=== PATIENT | female | born 1955 | race Hispanic/Latino ===

== ENCOUNTER → 2022-11-29 | Outpatient (CLI) | payer MEDICARE ==
[~2022-11-29] MED LIST: IOHEXOL 350 MG/ML 100ML INFUS..BTL IV ONE
== END | disposition home or self-care (01) ==
LOC: RAH 07:52
PROVIDERS: ATTEND Internal Medicine Cardiovascular Disease
DX: I20.9 Angina pectoris, unspecified (principal)
CPT/HCPCS: 75574; Q9967

== ENCOUNTER 2023-01-31 15:38 | Emergency (ER) | payer MEDICARE ==
[~2023-01-31] VITALS: Ht 157.5 cm; Wt 68.9 kg
[2023-01-31 16:14] LABS: APPEARANCE,URINE CLOUDY (CLEAR); BILIRUBIN,URINE NEGATIVE (NEGATIVE); COLOR,URINE YELLOW (YELLOW); GLUCOSE, URINE (UA) NEGATIVE (NEGATIVE); KETONES,URINE NEGATIVE (NEGATIVE); LEUKOCYTE ESTERASE ,URINE NEGATIVE Leu/uL (NEGATIVE); NITRATE,URINE NEGATIVE (NEGATIVE); OCCULT BLOOD,URINE SMALL (NEGATIVE); PH,URINE 5.5 (5.0-8.0); PROTEIN,URINE 50 mg/dL (NEGATIVE)
[2023-01-31 16:22] LABS: BACTERIA,URINE FEW /HPF (None Seen); MUCUS,URINE RARE LPF (None Seen); SQUAMOUS EPITHELIAL CELL,UR MOD /HPF (0-2)
[2023-01-31 16:38] LABS: BASOPHILS % (AUTO) 0.4 % (0.0-5.0); HEMATOCRIT 38.9 % (36-48); MEAN CORPUSCULAR HEMOGLOBIN 34.9 pg (27.0-33.0); MEAN CORPUSCULAR HGB CONC 33.2 g/dL (32.0-36.0); MEAN CORPUSCULAR VOLUME 105.1 fL (79-99); MONOCYTES % (AUTO) 9.7 % (3.0-13.0); NEUTROPHILS % (AUTO) 64.5 % (40.0-77.0); PLATELET COUNT (AUTO) 213 K/uL (130-400); RED CELL DISTRIBUTION WIDTH 12.5 % (11.0-15.5); WHITE BLOOD COUNT (AUTO) 7.2 K/uL (4.8-10.8)
[2023-01-31 16:58] LABS: POTASSIUM 4.2 mmol/L (3.5-5.1)
[2023-01-31] MEDS ORDERED: 0.9%NACL 1000ML 1,000 ML IV ONE (17:00)
[2023-01-31 17:13] LABS: ALBUMIN 3.4 g/dL (3.5-5.0); TOTAL PROTEIN, SERUM 7.9 g/dL (6.0-8.3)
[2023-01-31] MEDS ORDERED: LOPE2CAP PO (17:39)
[2023-01-31] MEDS ORDERED: ONDA4TAB10 PO (17:39)
[2023-01-31 18:27] VITALS: BP 115/62
== END 2023-01-31 19:05 | disposition home or self-care (01) ==
LOC: EDH 15:38
DX: K52.9 Noninfective gastroenteritis and colitis, unspecified (principal); I10 Essential (primary) hypertension; E78.00 Pure hypercholesterolemia, unspecified; Z88.0 Allergy status to penicillin; Z88.2 Allergy status to sulfonamides; Z88.8 Allergy status to other drugs, medicaments and biological substances; Z90.49 Acquired absence of other specified parts of digestive tract; Z90.710 Acquired absence of both cervix and uterus
CPT/HCPCS: 99285; 96360; 71045; 84484; 80053; 83690; 85025; 81001; 36415; 93005; J7030

== ENCOUNTER 2023-08-29 14:52 | Emergency (ER) | payer MEDICARE ==
[~2023-08-29] VITALS: Ht 157.5 cm; Wt 68.0 kg
[~2023-08-29 14:52] MED LIST changes: -IOHEXOL 350 MG/ML 100ML INFUS..BTL IV ONE; +LOPE2CAP PO; +ONDA4TAB10 PO
[2023-08-29 16:03] LABS: SARS-CoV-2, RNA, NAAT POSITIVE SARS CoV-2 (NEGATIVE)
[2023-08-29 16:05] LABS: INFLUENZA TYPE A Negative For Type A (NEGATIVE); INFLUENZA TYPE B Negative For Type B (NEGATIVE)
[2023-08-29] MEDS ORDERED: BENZ-39 PO (18:31)
[2023-08-29] MEDS ORDERED: METH4TAB3 PO (18:31)
[2023-08-29 19:37] VITALS: BP 129/82; PULSE 72; RESP 18; O2SAT 98
== END 2023-08-29 19:40 | disposition home or self-care (01) ==
LOC: EDH 14:52
DX: U07.1 COVID-19 (principal); I82.402 Acute embolism and thrombosis of unspecified deep veins of left lower extremity; R05.9 Cough, unspecified; M79.605 Pain in left leg; I25.10 Atherosclerotic heart disease of native coronary artery without angina pectoris; J44.9 Chronic obstructive pulmonary disease, unspecified; E78.00 Pure hypercholesterolemia, unspecified; I10 Essential (primary) hypertension; Z88.0 Allergy status to penicillin; Z88.1 Allergy status to other antibiotic agents; Z88.2 Allergy status to sulfonamides; Z90.49 Acquired absence of other specified parts of digestive tract; Z90.710 Acquired absence of both cervix and uterus
CPT/HCPCS: 71045; 87635; 87804; 93971

== ENCOUNTER 2024-03-14 14:19 | Emergency (ER) | payer MEDICARE ==
[~2024-03-14] VITALS: Ht 157.5 cm; Wt 68.0 kg
[~2024-03-14 14:19] MED LIST changes: +BENZ-39 PO; +METH4TAB3 PO; +ONDA-243 PO; -ONDA4TAB10 PO
[2024-03-14 15:06] LABS: BASOPHILS # (AUTO) 0.04 K/uL (0.00-0.20); BASOPHILS % (AUTO) 0.5 % (0.0-5.0); EOSINOPHILS % (AUTO) 1.2 % (0.0-8.0); IMMATURE GRANULOCYTE ABSOLUTE 0.04 K/uL (0-1); LYMPHOCYTES # (AUTO) 1.7 K/uL (1.0-4.8); LYMPHOCYTES % (AUTO) 20.3 % (21.0-51.0); MEAN CORPUSCULAR HEMOGLOBIN 34.6 pg (27.0-33.0); MEAN CORPUSCULAR HGB CONC 33.2 g/dL (32.0-36.0); MEAN CORPUSCULAR VOLUME 103.9 fL (79-99); MONOCYTES # (AUTO) 0.5 K/uL (0.1-1.0); MONOCYTES % (AUTO) 5.8 % (3.0-13.0); NEUTROPHILS % (AUTO) 71.7 % (40.0-77.0); PLATELET COUNT (AUTO) 251 K/uL (130-400); RED BLOOD CELL COUNT(AUTO) 3.56 MIL/uL (4.00-5.50); RED CELL DISTRIBUTION WIDTH 12.6 % (11.0-15.5); WHITE BLOOD COUNT (AUTO) 8.3 K/uL (4.8-10.8)
[2024-03-14 15:09] LABS: APPEARANCE,URINE CLEAR (CLEAR); BILIRUBIN,URINE NEGATIVE (NEGATIVE); COLOR,URINE YELLOW (YELLOW); GLUCOSE, URINE (UA) NEGATIVE (NEGATIVE); KETONES,URINE NEGATIVE (NEGATIVE); LEUKOCYTE ESTERASE ,URINE 500 Leu/uL (NEGATIVE); NITRATE,URINE NEGATIVE (NEGATIVE); PH,URINE 7.5 (5.0-8.0); PROTEIN,URINE NEGATIVE (NEGATIVE); UROBILINOGEN,URINE 0.2 mg/dL (0.2-1.0)
[2024-03-14 15:10] LABS: ADD UA MICROSCOPIC YES
[2024-03-14 15:11] LABS: POTASSIUM 4.3 mmol/L (3.5-5.1)
[2024-03-14 15:12] LABS: BACTERIA,URINE RARE /HPF (None Seen); SQUAMOUS EPITHELIAL CELL,UR FEW /HPF (0-2); WBC,URINE 26-50 /HPF (0-1); YEAST,URINE BUDDING RARE /HPF (None Seen)
[2024-03-14] MEDS: cefTRIAXone 1G VIAL IVPB ONE (17:20)
[2024-03-14 17:29] VITALS: BP 107/56; PULSE 55; RESP 18; O2SAT 96
[2024-03-14] MEDS ORDERED: MACR100 PO (17:33)
== END 2024-03-14 17:57 | disposition home or self-care (01) ==
LOC: EDH 14:19
DX: N30.00 Acute cystitis without hematuria (principal); R33.9 Retention of urine, unspecified; I25.10 Atherosclerotic heart disease of native coronary artery without angina pectoris; E78.00 Pure hypercholesterolemia, unspecified; I10 Essential (primary) hypertension; Z86.73 Personal history of transient ischemic attack (TIA), and cerebral infarction without residual deficits; Z88.0 Allergy status to penicillin; Z88.1 Allergy status to other antibiotic agents; Z88.2 Allergy status to sulfonamides; Z90.49 Acquired absence of other specified parts of digestive tract; Z90.710 Acquired absence of both cervix and uterus
CPT/HCPCS: 99285; 96365; 76770; 80048; 83690; 85025; 87086 ×2; 87186; 81001; 36415; J0696

== ENCOUNTER 2024-10-26 19:34 | Emergency (ER) | payer MEDICARE ==
[~2024-10-26] VITALS: Ht 157.5 cm; Wt 72.1 kg
[~2024-10-26 19:34] MED LIST changes: +MACR100 PO
--- NOTE | 2024-10-26 19:42 | ERN ---
ED Note History of Present Illness Stated Complaint: RIGHT SIDED RIB PAIN Chief Complaint: Rib Pain Time Seen by MD: 19:36 Dictation: PATIENT IS A 69-YEAR-OLD FEMALE HERE WITH COMPLAINTS OF RIGHT LATERAL CHEST WALL PAIN TENDERNESS ONSET YESTERDAY STATUS POST A SLIP FALL. NO HEAD INJURY NO NECK PAIN NO MIDLINE SPINE PAIN. SHE IS AMBULATORY. SHE HAS NOT TAKEN ANYTHING PRIOR FOR PAIN. Allergies: Coded Allergies: Penicillins (Unverified Allergy, Unknown, 01/31/23) Sulfa (Sulfonamide Antibiotics) (Unverified Allergy, Unknown, 01/31/23) levofloxacin (Unverified Allergy, Unknown, 01/31/23) Home Meds Active Scripts Nitrofurantoin/Nitrofuran Mac (Macrobid) 100 Mg Cap, 100 MG PO BID for 7 Days, #14 CAP Prov:JUAN SHERIDAN MD 03/14/24 Methylprednisolone (Medrol) 4 Mg Tab.ds.pk, 4 MG PO AD, #1 UNIT Prov:MINDA FERRARI AUTO TECHNICIAN 08/29/23 Benzonatate (Tessalon Perles) 100 Mg Cap, 100 MG PO TID for cough, #30 CAP 0 Refills Prov:MINDA FERRARI AUTO TECHNICIAN 08/29/23 Loperamide HCl (Imodium 2 mg Cap) 2 Mg Capsule, 2 MG PO TIDP PRN for DIARRHEA, #7 CAP Prov:WESTON MARIA MD 01/31/23 Ondansetron (Ondansetron Odt) 4 Mg Tab.rapdis, 4 MG PO Q12H for 7 Days, #14 TAB Prov:WESTON MARIA MD 01/31/23 Past Medical History Past Medical History: CAD, CVA, High Cholesterol, Hypertension Additional Past Medical Hx: PE Surgical History: Hysterectomy, Cholecystectomy, Other Surgical History Other: HERNIA Family History: Negative Social History: Negative, Lives with family History: Not Applicable RN Note Reviewed/Agreed w/PFSH: Yes Review of System Dictation CONSTITUTIONAL: NEGATIVE EXCEPT FOR HPI HEAD/FACE: NEGATIVE EXCEPT FOR HPI EENT: NEGATIVE EXCEPT FOR HPI RESPIRATORY: NEGATIVE EXCEPT FOR HPI RIGHT LATERAL CHEST WALL PAIN TENDERNESS GASTROINTESTINAL/ABDOMINAL: NEGATIVE EXCEPT FOR HPI GENITOURINARY: NEGATIVE EXCEPT FOR HPI MUSCULOSKELETAL: NEGATIVE EXCEPT FOR HPI INTEGUMENTARY: NEGATIVE EXCEPT FOR HPI NEUROLOGICAL/PSYCH: NEGATIVE EXCEPT FOR HPI HEMATOLOGIC/LYMPHATIC: NEGATIVE EXCEPT FOR HPI ALL SYSTEMS NEGATIVE, EXCEPT NOTED ABOVE. 13 POINT REVIEW OF SYSTEMS ASSESSED AND ALL NEGATIVE EXCEPT FOR ABOVE. Initial Vital Sign VS Vital Signs Date Time Temp Pulse Resp B/P (MAP) Pulse Ox O2 Delivery O2 Flow Rate FiO2 10/26/24 19:35 97.0 72 18 114/67 97 Room Air 10/26/24 20:59 0 21 Physical Exam Dictation VITAL SIGNS REVIEWE MODERATE ACUTE DISTRESS, WELL DEVELOPED, NOURISHED. HEAD AND FACE: NON-TRAUMATIC. EYES: PERRL, PINK CONJUNCTIVAS, EYELID NO TRAUMA, ANTERIOR CHAMBER WITH ARCUS SENILIS. EARS: PINNAS INTACT AND NO SIGNS OF TRAUMA OR ERYTHEMA EAR CANALS CLEAR AND NO DISCHARGE TM NO ERYTHEMA NOSE: NO DISCHARGE, NO BLEEDING. OROPHARYNX: MOUTH NORMAL, TONGUE PINK, PHARYNX CLEAR,NO ERYTHEMA, TONSILS NO EXUDATES, NO ABSCESSES NOTED, MUCOUS MEMBRANE MOIST NECK: SUPPLE, NON-TENDER, NO THYROMEGALY, NO MASSES, NO JVD, NO BRUITS BREAST:DEFERRED CHEST: MODERATE RIGHT LATERAL INFERIOR AND SUPERIOR CHEST WALL TENDERNESS WITH PALPATION TENDERNESS, NO CREPITUS, NO PARADOXICAL MOVEMENT, NO RETRACTIONS NO FLAIL T LUNGS:CLEAR, WELL-VENTILATED, SYMMETRIC, NO RALES, NO WHEEZING, NO RHONCHI, NO STRIDOR, GOOD BREATH SOUNDS BILATERALLY HEART: REGULAR RATE, REGULAR RHYTHM, NO MURMUR, NO GALLOPS VASCULAR: NO PERIPHERAL EDEMA, ABDOMEN: SOFT, POSITIVE BOWEL SOUNDS, NONDISTENDED, NO GUARDING, NONTENDER, NO REBOUND, NO MASSES NO HEPATOMEGALY, NO SPLENOMEGALY, NO YBARRA'S SIGN, NO HERNIAS. RECTAL: DEFERRED GENITAL: DEFERRED NEUROLOGICAL: NORMAL SPEECH, MOTOR FUNCTION INTACT, SENSORY FUNCTION INTACT MUSCULOSKELETAL: NECK NONTENDER, FULL RANGE OF MOTION, BACK NONTENDER, FULL RANGE OF MOTION, EXTREMITIES: NONTENDER, FULL RANGE OF MOTION SKIN: COLOR PINK, DRY, NO TURGOR, NO RASH, NO LACERATIONS, NO ABRASIONS, NO CON TUSIONS. LYMPHATIC: DEFERRED Results (Laboratory/Radiology) Laboratory/Radiology Laboratory Tests Test 10/26/24 20:37 White Blood Count 6.3 K/uL (4.8-10.8) Red Blood Count 3.65 MIL/uL (4.00-5.50) L Hemoglobin 13.0 g/dL (12.0-16.0) Hematocrit 39.0 % (36-48) Mean Corpuscular Volume 106.8 fL (79-99) H Mean Corpuscular Hemoglobin 35.6 pg (27.0-33.0) H Mean Corpuscular Hemoglobin Concent 33.3 g/dL (32.0-36.0) Red Cell Distribution Width 12.4 % (11.0-15.5) Platelet Count 252 K/uL (130-400) Mean Platelet Volume 10.1 fL (7.5-10.5) Immature Granulocyte % (Auto) 0.2 % (0-1) Neutrophils (%) (Auto) 51.3 % (40.0-77.0) Lymphocytes (%) (Auto) 38.2 % (21.0-51.0) Monocytes (%) (Auto) 7.6 % (3.0-13.0) Eosinophils (%) (Auto) 2.1 % (0.0-8.0) Basophils (%) (Auto) 0.6 % (0.0-5.0) Neutrophils # (Auto) 3.3 K/uL (1.8-7.7) Lymphocytes # (Auto) 2.4 K/uL (1.0-4.8) Monocytes # (Auto) 0.5 K/uL (0.1-1.0) Eosinophils # (Auto) 0.13 K/uL (0.00-0.70) Basophils # (Auto) 0.04 K/uL (0.00-0.20) Absolute Immature Granulocyte (auto 0.01 K/uL (0-1) Nucleated Red Blood Cells 0.0 % (0.0-0.19) Red Blood Cell Morphology See comments Sodium Level 141 mmol/L (136-145) Potassium Level 4.3 mmol/L (3.5-5.1) Chloride Level 104 mmol/L (101-111) Carbon Dioxide Level 31 mmol/L (21-32) Blood Urea Nitrogen 15 mg/dL (7-18) Creatinine 0.8 mg/dL (0.5-1.0) Glomerular Filtration Rate Calc 80 mL/min (>90) Random Glucose 102 mg/dL (70-105) Total Calcium 9.3 mg/dL (8.5-10.1) Troponin I High Sensitivity 5 ng/L (4-50) 2200/chest x-ray clear, no overt fractures Labs Reviewed?: Yes EKG: (+) NSR EKG Comment: EKG normal sinus rhythm/heart rate 60/axis normal/no ectopy ED Course ED Course Orders Procedure Category Date Status Time Ribs Uni Rt W Pa RAD 10/26/24 Taken Chest 3+ Vws 19:39 Cbc With Differential LAB 10/26/24 Complete 19:39 Troponin I High LAB 10/26/24 Complete Sensitivity 19:39 12 Lead Ekg Tracing- EKG 10/26/24 Logged Technical 19:39 Basic Metabolic Panel LAB 10/26/24 Complete 19:39 Acetaminophen With PHA 10/26/24 Complete Codeine (Tylenol-Code 20:00 Current Medications Medications (Trade) Dose Ordered Sig/Deborah Route PRN Reason Start Time Stop Time Status Last Admin Dose Admin Acetaminophen/ Codeine Phosphate (TYLenol-coDEINE TAB) 2 tab ONCE ONCE PO 10/26/24 20:00 10/26/24 20:01 DC 10/26/24 20:54 Vital Signs Date Time Temp Pulse Resp B/P (MAP) Pulse Ox O2 Delivery O2 Flow Rate FiO2 10/26/24 20:59 98.6 78 19 118/59 96 Room Air* 0 21 10/26/24 19:35 97.0 72 18 114/67 97 Room Air 2200/patient discharged home with chest wall contusion. Told see her primary care doctor Tuesday HEART Score Response (Comments) Value History: Low suspicion (0) 0 Age: > 65yrs (+2) 2 Risk Factors: 1-2 risk factors (+1) 1 Initial Troponin: Normal limit (0) 0 Total 3 Medical Decision Making [facility] Medical discharge making based on cardiac workup and rib series secondary to fall and right chest wall pain. Cardiac workup negative EKG negative Rib series shows lungs well expanded no overt fractures Discharged home with pain management told to see her doctor Tuesday DX & DISP Disposition: Discharge Departure Impression: Primary Impression: Contusion of right chest wall Additional Impression: Fall Condition: Stable Scripts Acetaminophen with Codeine (Acetaminophen-Cod #3 Tablet) 300 Mg-30 Mg Tablet 1 TAB PO Q4H PRN for Moderate to severe pain, #12 TAB 0 Refills Prov: MINDA FERRARI AUTO TECHNICIAN 10/26/24 Additional Instructions: Follow-up with primary care provider in 1 to 2 days. Take medications as directed here in the emergency room. Okay to continue home medications unless otherwise discussed during your visit in the emergency room today. Return to your nearest emergency room if symptoms worsen or if there is no improvement. Call 911 if you need immediate assistance. Take Tylenol or Motrin [id number] as needed and if no contraindications are present. Increase oral hydration. A wound culture or urine culture was ordered here in the emergency room department please follow-up with primary care provider and advise them to get repeat ports from our facility. If you had any Ean wrap/splints that were applied here, please do not remove them until you see your primary care or specialty. Take Tylenol with codeine as needed for severe pain. Activity and diet as tolerated, see your primary care doctor Tuesday for follow up Referrals: STACY LABOY Jr., MD (PCP) Time of Disposition: 22:01 I have reviewed the case, and I agree with, Diagnosis and Plan MINDA FERRARI NP Oct 26, 2024 19:42
[2024-10-26 20:45] LABS: BASOPHILS # (AUTO) 0.04 K/uL (0.00-0.20); BASOPHILS % (AUTO) 0.6 % (0.0-5.0); EOSINOPHILS # (AUTO) 0.13 K/uL (0.00-0.70); EOSINOPHILS % (AUTO) 2.1 % (0.0-8.0); IMMATURE GRANULOCYTE ABSOLUTE 0.01 K/uL (0-1); LYMPHOCYTES # (AUTO) 2.4 K/uL (1.0-4.8); LYMPHOCYTES % (AUTO) 38.2 % (21.0-51.0); MEAN CORPUSCULAR HEMOGLOBIN 35.6 pg (27.0-33.0); MEAN CORPUSCULAR HGB CONC 33.3 g/dL (32.0-36.0); MEAN CORPUSCULAR VOLUME 106.8 fL (79-99); MONOCYTES # (AUTO) 0.5 K/uL (0.1-1.0); MONOCYTES % (AUTO) 7.6 % (3.0-13.0); NEUTROPHILS # (AUTO) 3.3 K/uL (1.8-7.7); NEUTROPHILS % (AUTO) 51.3 % (40.0-77.0); PLATELET COUNT (AUTO) 252 K/uL (130-400); RED BLOOD CELL COUNT(AUTO) 3.65 MIL/uL (4.00-5.50); RED CELL DISTRIBUTION WIDTH 12.4 % (11.0-15.5); WHITE BLOOD COUNT (AUTO) 6.3 K/uL (4.8-10.8)
[2024-10-26] MEDS: acetaMINOPHEN WITH coDEINE 1 TAB TAB PO ONE (20:54)
[2024-10-26 20:56] LABS: CREATININE 0.8 mg/dL (0.5-1.0); POTASSIUM 4.3 mmol/L (3.5-5.1)
--- NOTE | 2024-10-26 20:58 | NUR ---
PATIENT REPORTS SHE TRIPPED AND FELL OUTSIDE HER HOME 3 DAYS AGO. CONTINUES WITH R RIB PAIN AFTER FALL
[2024-10-26 20:59] VITALS: BP 118/59; PULSE 78; RESP 19; TEMP 98.6; O2SAT 96
[2024-10-26] MEDS ORDERED: ACET-2079 PO (22:02)
--- NOTE | 2024-10-26 22:08 | HMCIMG ---
RIBS UNI RT W PA CHEST 3+ VWS CLINICAL HISTORY: RIGHT LATERAL CHEST WALL PAIN TENDERNESS STATUS POST FALL YESTERDAY COMPARISON: 08/29/2023 TECHNIQUE: 6 images were obtained. FINDINGS: The lungs are clear. Cardiac size unremarkable. The bony structures are intact with no identified fractures in particular the right ribs. IMPRESSION: There are no acute findings
--- NOTE | 2024-10-27 09:04 | EKG ---
[facility] Test Date: 2024-10-26 Test Time: 20:58:52 Pat Name: ANOOP PERKINS Department: ED Room: Gender: F Simplex Operator: [id number] : 1955 Requested By: MINDA FERRARI Order Number: [id number] Reading MD: Shoaib Mullins Measurements Intervals [place] Rate: 60 P: 69 [place]: 184 QRS: 13 QRSD: 94 T: 54 QT: 429 QTc: 430 Interpretive Statements Sinus rhythm Compared to ECG 01/31/2023 15:49:37 No significant changes Electronically Signed On 10-27-2024 16:00:12 CDT by Shoaib Mullins Please click the below link to view image of tracing.
== END 2024-10-26 22:14 | disposition home or self-care (01) ==
LOC: EDH 19:34
DX: S20.211A Contusion of right front wall of thorax, initial encounter (principal); E78.00 Pure hypercholesterolemia, unspecified; I10 Essential (primary) hypertension; I25.10 Atherosclerotic heart disease of native coronary artery without angina pectoris; Z86.73 Personal history of transient ischemic attack (TIA), and cerebral infarction without residual deficits; Z88.0 Allergy status to penicillin; Z88.1 Allergy status to other antibiotic agents; Z88.2 Allergy status to sulfonamides; Z90.49 Acquired absence of other specified parts of digestive tract; Z90.710 Acquired absence of both cervix and uterus; W01.0XXA Fall on same level from slipping, tripping and stumbling without subsequent striking against object, initial encounter; Y93.89 Activity, other specified; Y92.89 Other specified places as the place of occurrence of the external cause; Y99.8 Other external cause status
CPT/HCPCS: 36415; 71101; 80048; 84484; 85025; 93005; 99285